=== PATIENT | female | born 1995 | race Asian ===

== ENCOUNTER 2016-08-21 01:24 | Emergency (ER) | payer OTHER ==
[2016-08-21 02:25] LABS: PLATELET COUNT 195 x10^3mcL (130-400); RED CELL DISTRIBUTION WIDTH 11.8 % (11.5-14.5)
[2016-08-21 02:26] LABS: BASOPHIL % 3.5 % (0-2)
[2016-08-21 02:31] LABS: CALCIUM 8.9 mg/dL (8.5-10.1); CARBON DIOXIDE 22.4 mmol/L (21-32); CHLORIDE SERUM 103 mmol/L (98-107); CREATININE SERUM 0.6 mg/dL (0.6-1.0); GFR1 > 60 mL/min; GLUCOSE SERUM 107 mg/dL (74-106); POTASSIUM SERUM 3.3 mmol/L (3.5-5.1); SODIUM SERUM 139 mmol/L (136-145)
[2016-08-21 02:35] LABS: ALBUMIN 4.7 g/dL (3.4-5.0); ALKALINE PHOSPHATASE 73 U/L (46-116); ALT/SGPT 54 U/L (14-59); AST/SGOT 31 U/L (15-37); BILIRUBIN TOTAL 0.55 mg/dL (0.20-1.00); TOTAL PROTEIN, SERUM 8.1 g/dL (6.4-8.2)
[2016-08-21 02:38] LABS: AMPHETAMINE QUAL UR POSITIVE (NEG <=1000)
[2016-08-21 06:30] VITALS: BP 123/86
== END 2016-08-21 06:30 | disposition home or self-care (01) ==
LOC: ED 01:24
PROVIDERS: Emergency Medicine
DX: T43.621A Poisoning by amphetamines, accidental (unintentional), initial encounter (principal); R45.1 Restlessness and agitation; Y92.89 Other specified places as the place of occurrence of the external cause
CPT/HCPCS: 80307; G0480; J2060; Q0092